=== PATIENT | male | born 1980 | race Caucasian/White ===

== ENCOUNTER 2021-08-02 20:32 | Emergency (ER) | payer OTHER ==
[~2021-08-02] VITALS: Ht 165.1 cm; Wt 59.0 kg
[2021-08-02 21:03] VITALS: BP_SYST 129
--- NOTE | 2021-08-02 21:06 | NUR ---
Patient to ER chair for evaluation.
--- NOTE | 2021-08-02 21:06 | NUR ---
UNRULY Shanks at bedside examining patient.
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
--- NOTE | 2021-08-02 21:34 | NUR ---
Written and verbal consent obtained from patient for blood alcohol, name and verified by patient. Disinfected patient's skin with Iodine that did not contain alcohol or other volatile organic compound. Collected the blood from the subject named by venipuncture, in the presence of Officer Carlie #[id number]. Used a sterile, dry hypodermic needle and dry vacuum blood collection. Two dry vacuum blood collection was supplied by the officer named above. Withdrew a specimen of blood from Left Antecubital of the subject named above. Inverted both blood tubes several times to ensure that the preservative and anticoagulant were thoroughly mixed in the blood specimen. I initialed both blood tube labels for identification. The labeled blood tubes were handed directly to the Officer named above. The blood tubes stopper remained in place while I had possession of the blood tubes. The Officer placed tubes into envelope and sealed it in my presence. Envelope initialed by myself and Officer named above. Patient tolerated well, bandage applied, and bleeding controlled.
--- NOTE | 2021-08-02 21:36 | NUR ---
Patient began to get dizzy and diaphoretic. placed in [facility]. # 18 gauge angiocath placed to LAC. Use of asceptic technique. Opsite placed over site. Blood return noted. Blood for lab drawn from site. Flushed with 10 cc of normal saline. No evidence of infiltration noted. Patient tolerated well.
[2021-08-02] MEDS ORDERED: NACL 0.9% 1,000 ML IV ONE (21:45)
[2021-08-02 22:18] LABS: CALCIUM 9.5 mg/dL (8.4-11.0); CREATININE 0.88 mg/dL (0.55-1.30); POTASSIUM 4.3 mmol/L (3.5-5.1)
[2021-08-02 22:24] LABS: ALBUMIN 4.4 g/dL (3.4-4.8)
[2021-08-02 22:30] LABS: PROTHROMBIN TIME 10.3 SECS (9.5-12.5)
[2021-08-02 23:00] LABS: HEMATOCRIT 46.4 % (36-54); HEMOGLOBIN 16.1 g/dL (14.0-18.0); MEAN CORPUSCULAR HEMOGLOBIN 32 pg (27-31); MEAN CORPUSCULAR HGB CONC 35 % (32-36); MEAN CORPUSCULAR VOLUME 93 fL (79.0-98.0); PLATELET COUNT (AUTO) 296 K/uL (130-430); RED BLOOD CELL COUNT(AUTO) 4.99 MIL/uL (4.2-6.2); WHITE BLOOD COUNT (AUTO) 8.5 K/uL (4.8-10.8)
--- NOTE | 2021-08-02 23:01 | NUR ---
patient signed out by [facility]. No longer in Custody.
--- NOTE | 2021-08-03 00:16 | NUR ---
patient able to ambulate with steady gait.
[2021-08-03 00:21] VITALS: BP_SYST 127
--- NOTE | 2021-08-03 00:21 | NUR ---
Patient given written and verbal discharge instructions and verbalizes understanding. ER MD discussed with patient the results and treatment provided. Patient in stable condition. ID arm band removed. IV catheter removed intact and dressing applied, no active bleeding. No Rx given. Patient educated on pain management and to follow up with PMD. Pain Scale 0/10 Opportunity for questions provided and answered. Medication side effect fact sheet provided.
== END 2021-08-03 00:21 ==
LOC: SED 20:32
DX: R55 Syncope and collapse (principal); I10 Essential (primary) hypertension; E11.9 Type 2 diabetes mellitus without complications; V49.49XA Driver injured in collision with other motor vehicles in traffic accident, initial encounter; Y93.89 Activity, other specified; Y92.89 Other specified places as the place of occurrence of the external cause; Y99.8 Other external cause status
CPT/HCPCS: 36415; 70450; 71045; 71260; 72125; 74177; 76376; 80053; 83051; 84484; 85014; 85048; 85049; 85610; 86886; 86900; 86901; 93005; 96360; 99291; J7030; Q9967